=== PATIENT | male | born 1985 | race Hispanic/Latino ===

== ENCOUNTER 2024-12-19 18:21 | Inpatient (IN) | payer SELFPAY ==
[~2024-12-19] VITALS: Ht 180.3 cm; Wt 136.1 kg
[2024-12-19 19:00] VITALS: TEMP 98.5
[2024-12-19 19:35] LABS: BASOPHILS # (AUTO) 0.1 (0.0-0.1); BASOPHILS % 0.2 % (0.0-1.0); EOSINOPHILS % 0.1 % (0.0-6.0); HEMATOCRIT 44.7 % (38.2-49.6); HEMOGLOBIN 15.3 g/dL (14.0-18.0); LYMPHOCYTES # (AUTO) 4.2 (1.0-3.2); LYMPHOCYTES % 17.4 % (18.0-39.1); MEAN CORPUSCULAR HEMOGLOBIN 29.7 pg (28-32); MEAN CORPUSCULAR HGB CONC 34.2 g/dL (31-35); MEAN CORPUSCULAR VOLUME 86.6 fL (81-99); MONOCYTES # (AUTO) 1.3 (0.2-0.8); MONOCYTES % 5.3 % (4.4-11.3); NEUTROPHILS # (AUTO) 18.6 (2.1-6.9); NEUTROPHILS % 76.5 % (38.7-80.0); PLATELET COUNT 325 x10e3/uL (140-360); RED BLOOD COUNT 5.16 x10e6/uL (4.3-5.7); WHITE BLOOD COUNT 24.29 x10e3/uL (4.8-10.8)
[2024-12-19 19:54] LABS: INR 1.21
[2024-12-19 19:55] LABS: PARTIAL THROMBOPLASTIN TIME 33.8 seconds (23.8-35.5)
[2024-12-19] MEDS ORDERED: PIPERACILLIN/TAZOBACTAM 3.375 GM VIAL ONE (19:57)
[2024-12-19 20:01] LABS: ALBUMIN 3.8 g/dL (3.5-5.0); ALBUMIN/GLOBULIN RATIO 0.8 (0.8-2.0); ANION GAP 17.7 mmol/L (8-16); BILIRUBIN,TOTAL 1.5 mg/dL (0.2-1.2); CALCIUM 9.3 mg/dL (8.4-10.2); CREATININE, SERUM 0.81 mg/dL (0.72-1.25); POTASSIUM 3.7 mmol/L (3.5-5.1); TOTAL PROTEIN 8.4 g/dL (6.5-8.1)
[2024-12-19 20:05] LABS: TROPONIN I 0.001 ng/mL (0-0.300)
[2024-12-19] MEDS: SODIUM CHLORIDE 0.9% 1000ML 1,000 ML IV ONE (20:12)
[2024-12-19] MEDS: ONDANSETRON HCL INJ 2MG/ML 2ML 2 MG/ML VIAL IV STA (20:12)
[2024-12-19] MEDS: Morphine 4mg INJECTION 4 MG/ML INJ IV ONE (20:12)
[2024-12-19] MEDS ORDERED: IOPAMIDOL 370 MG/ML 100 ML INFUS..BTL INJ ONE (20:58)
[2024-12-19] MEDS ORDERED: ACETAMINOPHEN 1000 MG/100 ML IV PRN (22:45)
[2024-12-19 23:30] VITALS: PULSE 89; RESP 18
[2024-12-20] VITALS (9 sets, daily range): BP systolic 129–152; BP diastolic 86–95; PULSE 78–103; RESP 16–20; TEMP 98.1–99.2; O2SAT 94–97
[2024-12-20] MEDS: SODIUM CHLORIDE 0.9% 1000ML 1,000 ML IV SCH (00:14)
[2024-12-20] MEDS: ONDANSETRON HCL INJ 2MG/ML 2ML 2 MG/ML VIAL IV PRN (00:15)
[2024-12-20] MEDS: Morphine 4mg INJECTION 4 MG/ML INJ IV PRN (00:15)
[2024-12-20 02:16] LABS: CLARITY,URINE CLEAR (CLEAR); COLOR,URINE ORANGE (YELLOW)
[2024-12-20 02:17] LABS: BILIRUBIN,URINE NEGATIVE (NEGATIVE); GLUCOSE, URINE NEGATIVE (NEGATIVE); KETONES,URINE NEGATIVE (NEGATIVE); LEUKOCYTE ESTERASE ,URINE NEGATIVE (NEGATIVE); NITRITE,URINE NEGATIVE (NEGATIVE); PH,URINE 6 (5 - 7); PROTEIN,URINE DIPSTICK 2+ (NEGATIVE); URINE UROBILINOGEN 1 mg/dL (0.2 - 1)
[2024-12-20 02:21] LABS: BACTERIA,URINE FEW /HPF; EPITHELIAL CELLS,URINE FEW /LPF; TRANSITIONAL EPI CELLS,URINE FEW; WBC,URINE (MAN) 0-5 /HPF (0-5)
[2024-12-20 05:06] LABS: BASOPHILS % 0.2 % (0.0-1.0); EOSINOPHILS % 0.1 % (0.0-6.0); HEMATOCRIT 38.6 % (38.2-49.6); HEMOGLOBIN 13.1 g/dL (14.0-18.0); LYMPHOCYTES # (AUTO) 2.5 (1.0-3.2); LYMPHOCYTES % 14.2 % (18.0-39.1); MEAN CORPUSCULAR HEMOGLOBIN 30.2 pg (28-32); MEAN CORPUSCULAR HGB CONC 33.9 g/dL (31-35); MEAN CORPUSCULAR VOLUME 88.9 fL (81-99); MONOCYTES % 5.7 % (4.4-11.3); NEUTROPHILS # (AUTO) 14.2 (2.1-6.9); NEUTROPHILS % 79.4 % (38.7-80.0); PLATELET COUNT 280 x10e3/uL (140-360); RED BLOOD COUNT 4.34 x10e6/uL (4.3-5.7); RED CELL DISTRIBUTION WIDTH 13.1 % (11.7-14.4); WHITE BLOOD COUNT 17.84 x10e3/uL (4.8-10.8)
[2024-12-20 05:36] LABS: ALBUMIN/GLOBULIN RATIO 0.7 (0.8-2.0); ANION GAP 12.6 mmol/L (8-16); BILIRUBIN,TOTAL 1.4 mg/dL (0.2-1.2); CALCIUM 8.5 mg/dL (8.4-10.2); CREATININE, SERUM 0.79 mg/dL (0.72-1.25); POTASSIUM 3.6 mmol/L (3.5-5.1); TOTAL PROTEIN 7.2 g/dL (6.5-8.1)
[2024-12-20 11:18] LABS: CHOL/HDL RATIO 2.4 (3.9-4.7)
[2024-12-20] MEDS ORDERED: ACETAMINOPHEN 1000 MG/100 ML 100 ML IV ONE (13:47)
[2024-12-20] MEDS ORDERED: SEVOFLURANE INHAL SOLN 250 ML PEN BTL ONE (13:47)
[2024-12-20] MEDS ORDERED: LIDOCAINE HCL 2% LOCAL INJ 5 ML SDV VIAL INJ ONE (13:47)
[2024-12-20] MEDS ORDERED: FENTANYL CITRATE/PF 100MCG/2 ML INJ ONE ×2 (13:47→16:41)
[2024-12-20] MEDS ORDERED: SUCCINYLCHOLINE CHLORIDE 20 MG/ML 10ML VIAL ONE (13:47)
[2024-12-20] MEDS ORDERED: PROPOFOL IV EMULSION 10 MG/ML 20 ML VIAL ONE ×2 (13:47→16:41)
[2024-12-20] MEDS ORDERED: ROCURONIUM BROMIDE 1 ML IV ONE (13:47)
[2024-12-20] MEDS ORDERED: DEXAMETHASONE SOD PHOS INJ 4 MG/ML SDV ONE (15:48)
[2024-12-20] MEDS ORDERED: ONDANSETRON HCL INJ 2MG/ML 2ML 2 MG/ML VIAL ONE (15:48)
[2024-12-20] MEDS ORDERED: LACTATED RINGER'S 1,000 ML ONE (16:07)
[2024-12-20] MEDS ORDERED: SUGAMMADEX SODIUM 200 MG/2 ML VIAL IV ONE (16:07)
[2024-12-20] MEDS ORDERED: HYDROMORPHONE 2MG/ML ONE (17:03)
[2024-12-20] MEDS ORDERED: KETOROLAC TROMETHAMINE 30 MG/ML VIAL ONE (17:04)
[2024-12-20] MEDS: FAMOTIDINE 20 MG/2 ML VIAL IV SCH (18:08)
[2024-12-21] VITALS (9 sets, daily range): BP systolic 127–142; BP diastolic 79–91; PULSE 66–87; RESP 16–20; TEMP 97.7–98.2; O2SAT 96–100
[2024-12-21 07:12] LABS: BASOPHILS % 0.1 % (0.0-1.0); HEMATOCRIT 35.1 % (38.2-49.6); HEMOGLOBIN 11.6 g/dL (14.0-18.0); LYMPHOCYTES # (AUTO) 2.1 (1.0-3.2); LYMPHOCYTES % 10.9 % (18.0-39.1); MEAN CORPUSCULAR HEMOGLOBIN 29.9 pg (28-32); MEAN CORPUSCULAR VOLUME 90.5 fL (81-99); MONOCYTES # (AUTO) 0.7 (0.2-0.8); MONOCYTES % 3.6 % (4.4-11.3); NEUTROPHILS # (AUTO) 16.3 (2.1-6.9); NEUTROPHILS % 84.9 % (38.7-80.0); PLATELET COUNT 262 x10e3/uL (140-360); RED BLOOD COUNT 3.88 x10e6/uL (4.3-5.7); WHITE BLOOD COUNT 19.15 x10e3/uL (4.8-10.8)
[2024-12-21 07:35] LABS: ALBUMIN 2.6 g/dL (3.5-5.0); ANION GAP 12.2 mmol/L (8-16); BILIRUBIN,DIRECT 0.3 mg/dL (0.0-0.5); BILIRUBIN,TOTAL 0.7 mg/dL (0.2-1.2); CALCIUM 8.7 mg/dL (8.4-10.2); CREATININE, SERUM 0.66 mg/dL (0.72-1.25); POTASSIUM 4.2 mmol/L (3.5-5.1); TOTAL PROTEIN 7.2 g/dL (6.5-8.1)
[2024-12-21] MEDS ORDERED: DEXMEDETOMIDINE HCL 200 MCG/2 ML VIAL ONE (19:12)
[2024-12-22] VITALS (8 sets, daily range): BP systolic 126–146; BP diastolic 76–100; PULSE 66–74; RESP 16–18; TEMP 97.7–98.9; O2SAT 96–100
[2024-12-22 06:28] LABS: BASOPHILS % 0.1 % (0.0-1.0); EOSINOPHILS # (AUTO) 0.1 (0.0-0.4); EOSINOPHILS % 0.8 % (0.0-6.0); HEMATOCRIT 36.4 % (38.2-49.6); HEMOGLOBIN 11.5 g/dL (14.0-18.0); LYMPHOCYTES # (AUTO) 2.8 (1.0-3.2); LYMPHOCYTES % 22.6 % (18.0-39.1); MEAN CORPUSCULAR HEMOGLOBIN 29.5 pg (28-32); MEAN CORPUSCULAR HGB CONC 31.6 g/dL (31-35); MEAN CORPUSCULAR VOLUME 93.3 fL (81-99); MONOCYTES # (AUTO) 0.6 (0.2-0.8); MONOCYTES % 4.4 % (4.4-11.3); NEUTROPHILS % 71.6 % (38.7-80.0); PLATELET COUNT 283 x10e3/uL (140-360); WHITE BLOOD COUNT 12.51 x10e3/uL (4.8-10.8)
[2024-12-22 06:50] LABS: ANION GAP 12.7 mmol/L (8-16); CALCIUM 8.6 mg/dL (8.4-10.2); CREATININE, SERUM 0.74 mg/dL (0.72-1.25); POTASSIUM 3.7 mmol/L (3.5-5.1)
[2024-12-23] VITALS: BP 144/98; PULSE 70; RESP 18; TEMP 98.4; O2SAT 98
[2024-12-23 04:00] VITALS: BP 134/92; PULSE 66; RESP 18; TEMP 98.4; O2SAT 97
[2024-12-23 08:40] VITALS: BP 155/93; PULSE 72; RESP 18; TEMP 97.8; O2SAT 98
[2024-12-23 08:47] VITALS: BP 155/93; PULSE 72; RESP 18; TEMP 97.8; O2SAT 98
[2024-12-23] MEDS ORDERED: SENOKOT8.6 MG PO (14:24)
[2024-12-23] MEDS ORDERED: CEPHALEXIN500 MG PO (14:24)
[2024-12-23] MEDS ORDERED: METRONIDAZOLE500 MG PO (14:24)
[2024-12-23] MEDS ORDERED: TYLENOL325 MG PO (14:24)
[2024-12-23] MEDS ORDERED: ULTRAM 50MG50 MG PO (14:24)
[2024-12-23] MEDS ORDERED: ONDANSETRON ODT4 MG PO (14:24)
[2024-12-23] MEDS ORDERED: FAMOTIDINE20 MG PO (14:24)
== END 2024-12-23 16:00 | disposition home or self-care (01) | DRG 398 ==
LOC: ER 19:22 → ERHOLD 22:43 → MED/SURG 23:37
PROVIDERS: ADMIT Internal Medicine; ATTEND Internal Medicine
PROC: 0DTJ4ZZ Resection of Appendix, Percutaneous Endoscopic Approach (ICD-10-PCS; principal; 2024-12-20 15:42)
DX: K35.33 Acute appendicitis with perforation, localized peritonitis, and gangrene, with abscess (principal); E66.01 Morbid (severe) obesity due to excess calories; Z68.41 Body mass index [BMI] 40.0-44.9, adult; K76.0 Fatty (change of) liver, not elsewhere classified; E86.0 Dehydration
CPT/HCPCS: 36415; 74177; 76705; 80048; 80053; 80061; 80076; 81001; 83036; 83605; 83690; 84484; 85025; 85610; 85730; 87040; 88304; 93005; 94799; 99284; J0330; J1100; J1171; J1885; J2003; J2270; J2405; J2470; J2543; J7030; Q9967